=== PATIENT | male | born 1990 | race Caucasian/White ===

== ENCOUNTER 2022-02-27 03:04 | Emergency (ER) | payer OTHER ==
[2022-02-27] MEDS ORDERED: propofoL 100 ML ONE ×2 (03:11→04:25)
[2022-02-27] MEDS ORDERED: Midazolam 5 MG/ML SDV ONE ×3 (03:11→03:49)
[2022-02-27] MEDS ORDERED: Sodium Chloride 0.9% 10 ML Syringe FLUSH PRN (03:13)
[2022-02-27] MEDS ORDERED: Sodium Chloride 0.9% 2.5 ML Syringe FLUSH PRN (03:13)
[2022-02-27] MEDS ORDERED: Midazolam 1 MG/ML 2 ML SDV ONE (03:50)
[2022-02-27] MEDS ORDERED: Clindamycin Phosphate in D5W 600 MG in Premix Bag 1 BAG IV ONE ×2 (03:56)
[2022-02-27] MEDS ORDERED: Diphtheria,Pertussis(Acell),Tetanus Vaccine 0.5 ML Syringe IM ONE (03:56)
[2022-02-27] MEDS ORDERED: Lactated Ringers 1,000 ML IV SCH (04:00)
[2022-02-27 04:18] LABS: BLOOD UREA NITROGEN,BUN 7 mg/dL (7.0-18.0); CARBON DIOXIDE,CO2 21.9 mmol/L (21.0-32.0); CHLORIDE,CL 101 mmol/L (98-107); GLUCOSE RANDOM 103 mg/dL (74-106); POTASSIUM,K 3.2 mmol/L (3.5-5.1); SODIUM,NA 139 mmol/L (136-148)
[2022-02-27 04:22] LABS: ESTIMATED GFR 70 mL/min (>60)
[2022-02-27] MEDS ORDERED: Etomidate 2 MG/ML 20 ML SDV IVPUSH STA (04:24)
[2022-02-27] MEDS ORDERED: Midazolam 5 MG/ML SDV IVPUSH STA ×2 (04:25→04:26)
[2022-02-27] MEDS ORDERED: Rocuronium 100 MG/10 ML MDV IV STA (04:25)
[2022-02-27] MEDS ORDERED: Midazolam 5 MG/ML SDV IVPUSH ONE (04:26)
[2022-02-27] MEDS ORDERED: Propofol 200 MG/20 ML SDV IVPUSH STA (04:27)
[2022-02-27] MEDS ORDERED: Lactated Ringers 1,000 ML IV ONE (04:29)
[2022-02-27] MEDS ORDERED: Sodium Chloride 0.9% 1,000 ML IV ONE (04:30)
[2022-02-27] MEDS ORDERED: propofoL 100 ML IV SCH (04:30)
[2022-02-27] MEDS ORDERED: Succinylcholine 200 MG/10 ML MDV IV STA (05:01)
== END 2022-02-27 04:50 ==
LOC: MW.ED 03:04
DX: T20.30XA Burn of third degree of head, face, and neck, unspecified site, initial encounter (principal); T27.3XXA Burn of respiratory tract, part unspecified, initial encounter; T17.910A Gastric contents in respiratory tract, part unspecified causing asphyxiation, initial encounter; Z23 Encounter for immunization; Z20.822 Contact with and (suspected) exposure to COVID-19; X08.8XXA Exposure to other specified smoke, fire and flames, initial encounter
CPT/HCPCS: 31500; 36415; 51702; 71045; 80053; 80305; 80307; 81001; 85025; 87635; 90471; 90715; 96361; 96374; 99285; J0330; J2250; J2704; J3490; J7030; J7120; U0002